=== PATIENT | female | born 1980 | race African-American/Black ===

== ENCOUNTER 2017-07-06 20:43 | Emergency (ER) | payer MEDICAID ==
[2017-07-06 20:57] VITALS: BP 156/90; PULSE 87; RESP 20; TEMP 98.4; O2SAT 100
[2017-07-06 21:11] LABS: BILIRUBIN, URINE NEG (NEG); BLOOD, URINE MOD (NEG); GLUCOSE,URINE NEG (NEG); KETONE, URINE NEG (NEG); NITRITE,URINE NEG (NEG); URINE LEUKOCYTE ESTERASE MOD (NEG)
[2017-07-06 21:17] LABS: URINE COLOR YELLOW (YELLW/STRAW)
[2017-07-06 21:19] LABS: BACTERIA, URINE FEW /hpf; SQUAMOUS EPITHELIAL CELL URINE 0-5 /hpf (0-5)
[2017-07-06] MEDS ORDERED: VENTAER INH (21:19)
[2017-07-06 22:50] VITALS: BP 152/92; PULSE 84; RESP 18; O2SAT 100
[2017-07-06] MEDS ORDERED: MACR100C2 PO (22:51)
--- NOTE | 2017-07-06 22:52 | PD ---
HPI Chief Complaint: Complaint Time Seen by Provider: 22:40 Travel History International Travel<30 days: No Contact w/Intl Traveler<30days: No Traveled to known affect area: No History of Present Illness HPI The patient is a 37-year-old female that complains of dysuria, frequency and urgency for 2 days. She denies any flank pain. She denies any fever or vomiting but does have a slight amount of nausea. PFSH Past Medical History Asthma: Yes Diminished Hearing: No Tetanus Vaccination: Unknown Influenza Vaccination: No ?: Unknown LMP: 6 WEEKS AGO Past Surgical History Cholecystectomy: Yes Social History Alcohol Use: Yes (OCC) Tobacco Use: Yes (PK WEEK) Substance Use: No Allergies-Medications (Allergen,Severity, Reaction): Coded Allergies: shellfish derived (Verified Allergy, Severe, Angioedema , 07/06/17) Hives Reported Meds & Prescriptions Reported Meds & Active Scripts Active Reported Ventolin Hfa 18 GM Inh (Albuterol Sulfate) 90 Mcg/Act Aer 2 Puff INH Q6H PRN Review of Systems Except as stated in HPI: all other systems reviewed are Neg Physical Exam Narrative GENERAL: The patient is alert, oriented 3 in minimal apparent distress with her urinary symptoms. Her vital signs show blood pressure 156/90 but otherwise normal. SKIN: Focused skin assessment warm/dry. HEAD: Atraumatic. Normocephalic. EYES: Pupils equal and round. No scleral icterus. No injection or drainage. ENT: No nasal bleeding or discharge. Mucous membranes pink and moist. NECK: Trachea midline. No JVD. CARDIOVASCULAR: Regular rate and rhythm. No murmur appreciated. RESPIRATORY: No accessory muscle use. Clear to auscultation. Breath sounds equal bilaterally. GASTROINTESTINAL: Abdomen soft, with tenderness to direct palpation over the suprapubic area without any flank tenderness and the abdomen is nondistended. Hepatic and splenic margins not palpable. No guarding or rebound is present. MUSCULOSKELETAL: No obvious deformities. No clubbing. No cyanosis. No edema. NEUROLOGICAL: Awake and alert. No obvious cranial nerve deficits. Motor grossly within normal limits. Normal speech. PSYCHIATRIC: Appropriate mood and affect; insight and judgment normal. Data Data Last Documented VS Vital Signs Date Time Temp Pulse Resp B/P (MAP) Pulse Ox O2 Delivery O2 Flow Rate FiO2 07/06/17 20:57 98.4 87 20 156/90 (112) 100 Orders Orders Urinalysis - C+S If Indicated (07/06/17 20:48) Ed Urine Pregnancytest Poc (07/06/17 20:48) Urine Culture (07/06/17 21:00) Labs Laboratory Tests Test 07/06/17 21:00 Urine Color YELLOW Urine Turbidity HAZY Urine pH 6.0 Urine Specific [place] 1.020 Urine Protein TRACE mg/dL Urine Glucose (UA) NEG mg/dL Urine Ketones NEG mg/dL Urine Occult Blood MOD Urine Nitrite NEG Urine Bilirubin NEG Urine Leukocyte Esterase MOD Urine RBC 4-9 /hpf Urine WBC 25-49 /hpf Urine Squamous Epithelial Cells 0-5 /hpf Urine Bacteria FEW /hpf Microscopic Urinalysis Comment CULTURE INDICATED MDM Medical Decision Making Medical Screen Exam Complete: Yes Emergency Medical Condition: Yes Medical Record Reviewed: Yes Interpretation(s) The urine shows hazy turbidity, trace protein, moderate occult blood with moderate leukocyte esterase and 4-9 red cells with 25-49 white cells and few bacteria and culture is indicated. The [id number] urine test is negative. Differential Diagnosis Cystitis, pyelonephritis, urinary stone, colitis Narrative Course The patient historically and clinically has a cystitis. The urine does confirm the infection. Diagnosis Primary Impression: Cystitis Additional Instructions: Drink plenty of liquids, it is necessary to have a good urine flow across her kidneys to push the germs downstream and keep them away from your kidneys. The antibiotic is one tablet twice daily for 10 days. Med/Other Pt SpecificInfo: Prescription(s) given Scripts Nitrofurantoin Monohydrate Macrocrystals (Macrobid) 100 Mg Capsule 100 MG PO BID for Infection for 10 Days, #20 CAP 0 Refills Prov: Too Watts MD 07/06/17 Disposition: 01 DISCHARGE HOME Condition: Stable Too Watts MD Jul 06, 2017 22:51
[2017-07-06] MEDS ORDERED: PHEN0.4T PO (22:53)
[2017-07-06] MEDS ORDERED: NITROFURANTOIN MONOHYD MACROCR 100 MG CAP PO ONE (23:00)
[2017-07-06] MEDS ORDERED: PHENAZOPYRIDINE HCL 100 MG TAB PO ONE (23:00)
== END 2017-07-06 23:23 | disposition home or self-care (01) ==
LOC: PHED 20:43
DX: N30.90 Cystitis, unspecified without hematuria (principal); B96.1 Klebsiella pneumoniae [K. pneumoniae] as the cause of diseases classified elsewhere; J45.909 Unspecified asthma, uncomplicated; F17.200 Nicotine dependence, unspecified, uncomplicated; Z79.51 Long term (current) use of inhaled steroids
CPT/HCPCS: 81001; 84703; 87077; 87086; 87186; 99283